=== PATIENT | male | born 1970 | race Two or more races ===

== ENCOUNTER 2025-05-08 08:59 | Emergency (ER) | payer OTHER ==
[~2025-05-08] VITALS: Ht 167.6 cm; Wt 73.5 kg
[2025-05-08] MEDS ORDERED: VASOTEC20 M1 PO (09:13)
[2025-05-08] MEDS ORDERED: ZOVIRAX800 MG PO (09:14)
[2025-05-08] MEDS ORDERED: BIKTARVY 50-201 EACH (09:15)
[2025-05-08] MEDS ORDERED: CRESTOR40 MG PO (09:15)
[2025-05-08] MEDS ORDERED: 8 HOUR650 MG PO (15:45)
== END 2025-05-08 16:33 | disposition home or self-care (01) ==
LOC: ER 09:33
DX: S92.812A Other fracture of left foot, initial encounter for closed fracture (principal); X83.8XXA Intentional self-harm by other specified means, initial encounter; Y93.89 Activity, other specified; Y92.89 Other specified places as the place of occurrence of the external cause; Y99.8 Other external cause status; G89.11 Acute pain due to trauma; M79.672 Pain in left foot; I10 Essential (primary) hypertension; B20 Human immunodeficiency virus [HIV] disease; Z88.2 Allergy status to sulfonamides